=== PATIENT | male | born 1965 | race Caucasian/White ===

== ENCOUNTER 2018-06-27 11:13 | Inpatient (IN) | payer BC, OTHER ==
[~2018-06-27] VITALS: Ht 175.3 cm; Wt 58.8 kg
[2018-06-27] MEDS ORDERED: MORPHINE SULFATE 4 MG/ML SYR/VIAL IV ONE (11:30)
[2018-06-27] MEDS ORDERED: ONDANSETRON HCL 4 MG/2 ML VIAL IV ONE ×2 (11:30→15:15)
[2018-06-27] MEDS ORDERED: SODIUM CHLORIDE 0.9% 1,000 ML IVB ONE (11:30)
[2018-06-27 11:39] LABS: Basophils # (auto) 0.1 uL; Basophils % (auto) 0.8 % (0.0-2.0); Eosinophils # (auto) 0.2 uL; Eosinophils % (auto) 1.3 % (0.0-7.0); Hematocrit 36.9 % (41.0-53.0); Hemoglobin 12.1 g/dL (13.5-17.5); Lymphocytes # (auto) 1.7 uL; Mean Corpuscular Hemoglobin 29.7 pg (28.0-32.0); Mean Corpuscular Hgb Conc. 32.7 g/dL (32.0-36.0); Mean Corpuscular Volume 90.7 fL (80.0-100.0); Monocytes # (auto) 1.1 uL; Monocytes % (auto) 8.2 % (0.0-12.0); Neutrophils # (auto) 10.8 uL; Neutrophils % (auto) 77.7 % (37.0-80.0); Platelet Count (auto) 338 10^3/uL (140-450); Red Blood Cells 4.07 10^6/uL (4.5-5.90); Red Cell Distribution Width 14.5 % (11.8-14.3); White Blood Cell 13.8 10^3/uL (4.4-10.8)
[2018-06-27 12:03] LABS: Albumin 3.1 g/dL (3.4-5.0); BUN/Creatinine Ratio 17.9; Calcium 8.6 mg/dL (8.5-10.1); Potassium 3.9 mmol/L (3.5-5.1)
[2018-06-27 12:05] LABS: Bilirubin, Total 0.3 mg/dL (0.2-1.0); Total Protein 6.9 g/dL (6.4-8.2)
[2018-06-27] MEDS ORDERED: IOHEXOL 300 MG/ML 100ML BOTTLE IJ ONE (12:24)
[2018-06-27] MEDS ORDERED: PIPERACILLIN-TAZOB 3.375GM 100 ML IV ONE (13:00)
[2018-06-27] MEDS ORDERED: metroNIDAZOLE 500MG/100ML 100 ML IV ONE (13:00)
[2018-06-27 13:53] LABS: INR 0.95 (0.9-1.15)
[2018-06-27] MEDS ORDERED: SUCCINYLCHOLINE CHLORIDE 20 MG/ML 10ML VIAL IV ONE (14:30)
[2018-06-27] MEDS ORDERED: LIDOCAINE 1% (LOCAL ANESTH.) PF 5ml SDV ONE (14:31)
[2018-06-27] MEDS ORDERED: MIDAZOLAM HCL 1MG/1ML-2 ML VIAL ONE (14:36)
[2018-06-27] MEDS ORDERED: ETOMIDATE (2MG/ML) 20ML VIAL IV ONE (14:40)
[2018-06-27] MEDS ORDERED: fentaNYL CITRATE 100 MCG/2 ML VL ONE (14:47)
[2018-06-27] MEDS ORDERED: STERILE WATER 10 ML ONE (14:54)
[2018-06-27] MEDS ORDERED: ceFAZolin 1GM VL ONE (14:54)
[2018-06-27] MEDS ORDERED: HYDROmorphone HCL 2 MG/ML VL IV PRN ×3 (15:15→16:00)
[2018-06-27] MEDS ORDERED: NALOXONE HCL 0.4 MG/ML VIAL IV PRN (15:15)
[2018-06-27] MEDS ORDERED: NEOSTIGMINE 1 MG/ML INJ (10mg/10ML VIAL) ONE (15:29)
[2018-06-27] MEDS ORDERED: GLYCOPYRROLATE 0.2 MG/ML 1ML VIAL ONE (15:29)
[2018-06-27] MEDS ORDERED: SODIUM CHLORIDE 0.9% 1,000 ML IV SCH (16:00)
[2018-06-27] MEDS ORDERED: ONDANSETRON HCL 4 MG/2 ML VIAL IV PRN ×2 (16:00→18:30)
[2018-06-27] MEDS: MEPERIDINE HCL (25 MG/ML) 1ML VIAL IV ONE ×2 (16:12→19:57)
[2018-06-27] MEDS ORDERED: MEPERIDINE HCL (25 MG/ML) 1ML VIAL ONE (16:12)
[2018-06-27 18:00] VITALS: BP 141/92
--- NOTE | 2018-06-27 18:00 | NUR ---
Received bedside report from Colin FRIEDMAN. Patient in room 266. Patient on the monitor. Patient on 2L NC. NG tube to left nares on LIS. Matt to gravity. IV right AC 18G saline locked, patent, clean, dry, and intact. SCD's bilateral. Midline incision and 2 EDITA drains suctioned in the left lower quadrant draining serosanguineous fluid, dressings clean, dry, and intact, patient has ABD binder in place. No S/S of SOB/pain or distress noted at this time. Will continue to monitor.
--- NOTE | 2018-06-27 18:17 | NUR ---
Family at bedside.
[2018-06-27] MEDS: D5W/SOD CHL 0.45%/KCL 20MEQ 1,000 ML IV SCH (18:30)
--- NOTE | 2018-06-27 19:20 | NUR ---
OPENING NOTE RECEIVED REPORT AND ASSUMED CARE OF PT FROM DONALD FRIEDMAN
[2018-06-27 19:55] VITALS: BP 127/84
[2018-06-27 20:00] VITALS: BP 127/84
[2018-06-27] MEDS ORDERED: AMINO ACID INFUSION IN D10W 1,000 ML IV ONE (20:45)
[2018-06-27] MEDS ORDERED: TPN PER PHARMACY 0 ML IV SCH (20:45)
[2018-06-27] MEDS: ceFAZolin 1GM/50ML 50 ML IV SCH (22:00)
[2018-06-27] MEDS: FAMOTIDINE (10MG/ML) 2ML VL IV SCH (22:05)
[2018-06-27] MEDS: metroNIDAZOLE 500MG/100ML 100 ML IV SCH (23:03)
[2018-06-28] VITALS: BP 135/78
[2018-06-28] MEDS ORDERED: DEXTROSE (50%) 50ML SYRG IV SCH
[2018-06-28] MEDS: ACCU-CHEK COMFORT CURVE STRIP VI SCH ×5 (00:03→23:37)
[2018-06-28] MEDS: HYDROmorphone HCL 2 MG/ML VL IV PRN ×6 (02:39→23:50)
[2018-06-28 04:00] VITALS: BP 123/72
[2018-06-28 04:47] LABS: Basophils # (auto) 0 uL; Basophils % (auto) 0.1 % (0.0-2.0); Eosinophils # (auto) 0 uL; Hematocrit 36.1 % (41.0-53.0); Hemoglobin 12.3 g/dL (13.5-17.5); Lymphocytes # (auto) 0.4 uL; Lymphocytes % (auto) 4.2 % (10.0-50.0); Mean Corpuscular Hemoglobin 30.5 pg (28.0-32.0); Mean Corpuscular Hgb Conc. 34.1 g/dL (32.0-36.0); Mean Corpuscular Volume 89.3 fL (80.0-100.0); Monocytes # (auto) 0.7 uL; Monocytes % (auto) 7.2 % (0.0-12.0); Neutrophils # (auto) 8.1 uL; Neutrophils % (auto) 88.5 % (37.0-80.0); Platelet Count (auto) 229 10^3/uL (140-450); Red Blood Cells 4.04 10^6/uL (4.5-5.90); Red Cell Distribution Width 14.8 % (11.8-14.3); White Blood Cell 9.2 10^3/uL (4.4-10.8)
[2018-06-28] MEDS: D5W/SOD CHL 0.45%/KCL 20MEQ 1,000 ML IV SCH ×3 (04:54→16:19)
[2018-06-28] MEDS: metroNIDAZOLE 500MG/100ML 100 ML IV SCH ×3 (04:55→21:36)
--- NOTE | 2018-06-28 05:00 | NUR ---
ASSISTED PT WITH CHG BATH. PT TOLERATED WELL. BED IN LOWEST POSITION. CALL LIGHT WITHIN REACH
[2018-06-28 05:15] LABS: Albumin 2.1 g/dL (3.4-5.0); BUN/Creatinine Ratio 23.1; Calcium 7.4 mg/dL (8.5-10.1); Magnesium 1.8 mg/dL (1.6-2.6); Potassium 4.2 mmol/L (3.5-5.1)
[2018-06-28 05:20] LABS: Bilirubin, Total 0.4 mg/dL (0.2-1.0); Pre Albumin 13.1 mg/dL (20.0-40.0); Total Protein 5.3 g/dL (6.4-8.2)
[2018-06-28] MEDS: InsuLIN REG 1unit/0.01ml Soln (100units/ml) SC SCH ×5 (06:00→23:38)
[2018-06-28] MEDS: ceFAZolin 1GM/50ML 50 ML IV SCH (06:08)
--- NOTE | 2018-06-28 07:10 | NUR ---
CLOSING NOTE REPORT GIVEN AND CARE ENDORSED TO DONALD FRIEDMAN
[2018-06-28 08:00] VITALS: BP 135/79
--- NOTE | 2018-06-28 08:00 | NUR ---
Opening Shift Note Assumed care of patient, awake and alert. No S/S of distress/SOB or pain. IV right forearm 20G running fluids at 120ml/hr and left forearm 20G running clinimix at 46ml/hr. IV's patent, clean, dry, and intact. NG tube left nares to LCS. Matt to gravity light sophy urine noted. Oxygen 2L NC. Patient on the monitor. SCD's bilateral. Instructed on POC and to call for assist. Bed locked and in the lowest position, side rails up x2, call light with in reach. Will continue to monitor for change.
--- NOTE | 2018-06-28 08:30 | NUR ---
Dr. Cesar at bedside.
[2018-06-28] MEDS ORDERED: PANTOPRAZOLE 80 MG in SODIUM CHL 0.9% 60 ML IV SCH (10:00)
[2018-06-28] MEDS ORDERED: PANTOPRAZOLE 40 MG/10 ML VIAL INJ IV SCH (10:00)
--- NOTE | 2018-06-28 10:00 | NUR ---
Medication dosages, usages, and side effects explained to patient. Patient verbalized understanding. Will continue to monitor.
[2018-06-28] MEDS ORDERED: ESOMEPRAZOLE IV SCH ×2 (10:45→11:15)
[2018-06-28] MEDS: FAMOTIDINE (10MG/ML) 2ML VL IV SCH (11:09)
[2018-06-28] MEDS ORDERED: SODIUM CHL 0.9% IV SCH (11:15)
--- NOTE | 2018-06-28 11:15 | NUR ---
Dr. Lerma at bedside.
[2018-06-28 12:00] VITALS: BP 140/87
--- NOTE | 2018-06-28 12:14 | NUR ---
PICC line placement Patient/Patient significant other educated on need for PICC line placement. All risks and benefits explained and all questions and concerns addressed prior to procedure. Noted past medical history and allergies with no contraindications. INR and Plt counts within acceptable range. 5 fr PICC line inserted via right basilic vein using [employer] US and Tip Location System. Sterile technique with maximum barrier precautions utilized. Blood return obtained from each of 3 lumens and each flushed easily with NS using proper technique. PICC secured with Stat-lock; biodisc and occlusive dressing applied. Stat portable chest x-ray obtained for PICC tip placement. *Baseline Arm Circumference 27cm. Internal length 41cm. External length 0cm. PICC lot # [id number]. Note: Placed easily x1 attempt.
[2018-06-28] MEDS ORDERED: LIDOCAINE 1% (LOCAL ANESTH.) PF 5ml SDV ID ONE (12:15)
[2018-06-28 13:00] LABS: % Iron Saturation 3.6 % (20-55)
--- NOTE | 2018-06-28 14:15 | NUR ---
Juan PICC line nurse at bedside. Per radiologist recommendation PICC line should be pulled back 3cm. Juan RN at bedside. PICC line pulled back 3cm. PICC line ok to use no repeat x-ray needed.
--- NOTE | 2018-06-28 14:30 | NUR ---
Family at bedside. Will continue to monitor.
--- NOTE | 2018-06-28 14:34 | NUR ---
Nutrition Assessment Notes please see attached link for complete assessment Est. Needs based on IBW (72 kg): 3618-8111 kcal (25-30 kcal/kgBW), 72-93 gms pro (1.0-1.3gms/kgBW). Will continue to monitor pertinent labs and reassess nutrient need prn Addendum: 06/28/18 at [address] Amended: Links added.
[2018-06-28 15:41] LABS: Carcinoembryonic Antigen 2.69 ng/mL (<5.0 OR =); Ferritin 84.1 ng/mL (10-322)
[2018-06-28] MEDS: SODIUM CHL 0.9% IV SCH ×3 (16:18→21:36)
[2018-06-28] MEDS: ESOMEPRAZOLE IV SCH ×3 (16:18→21:36)
[2018-06-28] MEDS: LEVOFLOXACIN 500MG 100 ML IV SCH (16:19)
[2018-06-28 16:30] VITALS: BP 146/85
--- NOTE | 2018-06-28 16:30 | NUR ---
Patient resting at this time. Will continue to monitor.
--- NOTE | 2018-06-28 18:18 | NUR ---
End of shift note: Patient awake and alert. Patient A&Ox4. No S/S of distress/SOB. IV right forearm 20G and left forearm saline locked, patent, clean, dry, and intact. PICC line right upper arm running clinimix/fluids/nexium, patent, clean, dry, and intact. NG tube left nares to LCS. Matt to gravity light sophy urine noted. Patient on the monitor. SCD's bilateral. Bed locked and in the lowest position, side rails up x2, call light with in reach. Report to be given to mine deputy RN. Will continue to monitor for change.
--- NOTE | 2018-06-28 18:30 | NUR ---
300mls out green gastric from NG tube. 100ml out of EDITA drain A. 50ml out of EDITA drain B.
[2018-06-28] MEDS ORDERED: PPN PER PHARMACY IV NR ×8 (20:00)
--- NOTE | 2018-06-28 20:03 | NUR ---
INITIAL CONTACT ASSUMED CARE OF PATIENT PATIENT RECEIVED LAYING ON BED IN SEMI-FOWLERS POSITION AAOX4, VITAL SIGNS WITHIN NORMAL LIMITS, NO S/S OF DISTRESS NOTED, PATIENT DENIES PAIN AT THIS TIME. PATIENT IS ABLE TO MOVE UPPER, LOWER EXTREMITIES, TURNS SELF. O2 SAT 94% ROOM AIR. NOTED GOODSON CATHETER IN PLACE AND DRAINING TO GRAVITY. NOTED TRIPLE LUMEN PICC LINE TO RIGHT UPPER ARM, NO S/S OF PHLEBITIS OR INFILTRATION. NOTED 20 G IV RIGHT FOREARM, 18 G IV LEFT A/C PATENT/ASYMPTOMATIC. NOTED BILATERAL EDITA DRAINS TO ABD LOWER QUADRANT. BED IN LOWEST LOCKED POSITION, SIDE RAILS UP X 2. PATIENT IN FULL VIEW OF NURSES STATION. SAFETY MAINTAINED, WILL CONTINUE TO MONITOR.
[2018-06-28 21:00] VITALS: BP 134/84
[2018-06-28] MEDS: SODIUM CHLOR 0.9% PF (SALINE LOCK) 10ML VIAL/SYR IV SCH (21:36)
[2018-06-29] VITALS (14 sets, daily range): BP systolic 128–168; BP diastolic 78–98
[2018-06-29] MEDS: SODIUM CHL 0.9% IV SCH ×5 (02:30→21:02)
[2018-06-29] MEDS: ESOMEPRAZOLE IV SCH ×5 (02:30→21:02)
[2018-06-29] MEDS: D5W/SOD CHL 0.45%/KCL 20MEQ 1,000 ML IV SCH ×4 (02:40→20:35)
[2018-06-29 05:01] LABS: Albumin 1.9 g/dL (3.4-5.0); Calcium 7.6 mg/dL (8.5-10.1); Magnesium 2.2 mg/dL (1.6-2.6); Potassium 3.9 mmol/L (3.5-5.1)
[2018-06-29 05:05] LABS: BUN/Creatinine Ratio 21.9; Bilirubin, Total 0.3 mg/dL (0.2-1.0); Phosphorus 1.9 mg/dL (2.5-4.90); Total Protein 5.2 g/dL (6.4-8.2)
[2018-06-29] MEDS: ACCU-CHEK COMFORT CURVE STRIP VI SCH ×3 (06:40→18:04)
[2018-06-29] MEDS: InsuLIN REG 1unit/0.01ml Soln (100units/ml) SC SCH ×3 (07:00→18:04)
--- NOTE | 2018-06-29 07:15 | NUR ---
Report received from ELDER Okeefe.
[2018-06-29] MEDS: metroNIDAZOLE 500MG/100ML 100 ML IV SCH ×3 (07:38→20:35)
[2018-06-29] MEDS ORDERED: LABETALOL HCL 5 MG/ML ML 20ML VIAL IV PRN (09:30)
[2018-06-29] MEDS ORDERED: SODIUM PHOSP 20MEQ(15MMOL) IN NS 100 ML IV ONE (10:00)
[2018-06-29] MEDS: LEVOFLOXACIN 500MG 100 ML IV SCH (10:08)
[2018-06-29] MEDS: SODIUM CHLOR 0.9% PF (SALINE LOCK) 10ML VIAL/SYR IV SCH ×2 (10:08→20:35)
--- NOTE | 2018-06-29 10:54 | NUR ---
Dr. Watson at bedside: New orders - Pulmonary test at bedside ordered, solumedrol, med neb treatments. Addendum: 06/29/18 at 1100 by Fay Chen RN wrong patient-
--- NOTE | 2018-06-29 10:56 | NUR ---
PATIENT SEEN BY DR. TURNER - KEEP PATIENT IN BED FOR NOW, CONTINUE STRICT NPO AND NGT. WITH REASSESS ABDOMEN WITH XRAY TO VERIFY IF PATIENT ABLE TO EAT.
--- NOTE | 2018-06-29 12:38 | NUR ---
PATIENT SEEN BY DR. LERMA- NEW ORDERS FOR THE MORNING.
[2018-06-29] MEDS: HYDROmorphone HCL 2 MG/ML VL IV PRN ×4 (12:50→22:18)
--- NOTE | 2018-06-29 18:00 | NUR ---
I/O- EDITA DRAIN A = 10 EDITA DRAIN B= 40 NGT = 200 GOODSON = 800
--- NOTE | 2018-06-29 19:42 | NUR ---
SBAR REPORT GIVEN TO KARINE.
--- NOTE | 2018-06-29 19:45 | NUR ---
SHIFT OPENING NOTE RECEIVED PATIENT AWAKE, ALERT AND ORIENTED X4. NO SOB OR DISTRESS NOTED. REPORTS 2/10 BACK AND ABDOMINAL PAIN. STATUS POST ABDOMINAL SURGERY. ABDOMINAL BINDER ON, ENCOURAGED TO USE I.S AND DEEP BREATHING. SCDS ON. PATIENT IS STRICTLY NPO. NG TO L NARE TO LCS. 2 JPS NOTED ON LEFT ABDOMEN WITH SEROUS OUTPUT. R[place] PICC LINE INFUSING TPN, FLUIDS AND NEXIUM. INSTRUCTED ON POC AND TO CALL FOR ASSIST NEEDED. BED IS IN THE LOWEST POSITION WITH SIDE RAILS UP X2, CALL LIGHT IS WITHIN REACH.
[2018-06-29] MEDS ORDERED: TPN PER PHARMACY IV NR ×9 (20:00)
[2018-06-30] VITALS: BP 125/71
--- NOTE | 2018-06-30 01:50 | NUR ---
ROUNDS PATIENT QUIETLY LAYING N BED WATCHING TV. NO DISTRESS OR SOB NOTED. WILL CONTINUE TO CLOSELY MONITOR.
[2018-06-30] MEDS: ACCU-CHEK COMFORT CURVE STRIP VI SCH ×4 (01:57→18:30)
[2018-06-30] MEDS: ESOMEPRAZOLE IV SCH ×5 (01:57→23:30)
[2018-06-30] MEDS: SODIUM CHL 0.9% IV SCH ×5 (01:57→23:30)
[2018-06-30] MEDS: InsuLIN REG 1unit/0.01ml Soln (100units/ml) SC SCH ×4 (01:58→18:30)
[2018-06-30 04:00] VITALS: BP 135/76
[2018-06-30 05:00] LABS: Basophils # (auto) 0 uL; Basophils % (auto) 0.3 % (0.0-2.0); Eosinophils # (auto) 0 uL; Eosinophils % (auto) 0.4 % (0.0-7.0); Hematocrit 32.5 % (41.0-53.0); Lymphocytes # (auto) 0.4 uL; Mean Corpuscular Hemoglobin 30.2 pg (28.0-32.0); Mean Corpuscular Hgb Conc. 33.9 g/dL (32.0-36.0); Mean Corpuscular Volume 89.1 fL (80.0-100.0); Monocytes # (auto) 0.5 uL; Monocytes % (auto) 5.6 % (0.0-12.0); Neutrophils # (auto) 8.1 uL; Neutrophils % (auto) 89.7 % (37.0-80.0); Platelet Count (auto) 184 10^3/uL (140-450); Red Blood Cells 3.65 10^6/uL (4.5-5.90); Red Cell Distribution Width 14.5 % (11.8-14.3)
[2018-06-30 05:24] LABS: Albumin 1.8 g/dL (3.4-5.0); BUN/Creatinine Ratio 17.9; Calcium 7.4 mg/dL (8.5-10.1); Magnesium 2.1 mg/dL (1.6-2.6); Phosphorus 2.7 mg/dL (2.5-4.90); Potassium 3.6 mmol/L (3.5-5.1)
[2018-06-30 05:27] LABS: Bilirubin, Total 0.2 mg/dL (0.2-1.0); Total Protein 5.2 g/dL (6.4-8.2)
--- NOTE | 2018-06-30 06:00 | NUR ---
MORNING HYGEINE CARE FULL BED BATH PERFORMED WITH CHG WIPES. ORAL CARE DONE. GOWN CHANGED. PARTIAL LINEN CHANGED. PATIENT TOLERATED IT WELL.
[2018-06-30] MEDS: metroNIDAZOLE 500MG/100ML 100 ML IV SCH ×3 (06:36→21:01)
--- NOTE | 2018-06-30 07:25 | NUR ---
END OF SHIFT REPORT GIVEN AND CARE ENDORSED TO SARAI FRIEDMAN. PATIENT IS QUIETLY LAYING IN BED. NO DISTRESS NOTED.
--- NOTE | 2018-06-30 07:30 | NUR ---
REPORT: REPORT RECEIVED FROM CRIPPLE WORKER RN TO RESUME CARE OF PT.
--- NOTE | 2018-06-30 08:00 | NUR ---
OPEN: ASSESSMENT COMPLETE. SEE NURSING FLOW SHEET FOR UPDATED DETAILS. PT IS ALERT AND ORIENTED X4, OBEYS COMMANDS, VERBALIZING NEEDS AND ABLE TO USE CALL LIGHT ON OWN. ON ROOM AIR. NGT TO LEFT NARE TO LCS DRAINING MINIMAL AMOUNT OF GREEN DRAINAGE. GOODSON CATHETER IN PLACE DRAINING URINE TO GRAVITY. SCD'S ON BILATERAL LOWER EXTREMITIES. MID ABDOMINAL INCISION THAT IS COVERED WITH DRESSING WITH SCANT AMOUNT OF OLD DRAINAGE NOTED. EDITA DRAIN X2 TO LEFT ANTERIOR ABDOMEN TO BULB SUCTION. ABDOMINAL BINDER IN PLACE. SHARED POC WITH PT AND ABLE TO VERBALIZE UNDERSTANDING FOR SHIFT THUS FAR. CONTINUE CARE.
--- NOTE | 2018-06-30 10:30 | NUR ---
VISITORS: VISITORS IN AT BEDSIDE.
--- NOTE | 2018-06-30 10:30 | NUR ---
MD CONTACT: CONTACTED DR. TURNER TO UPDATE ON PT STATUS AND FOR POTENTIAL NEW ORDERS FOR PAIN MANAGEMENT.
[2018-06-30] MEDS: SODIUM CHLOR 0.9% PF (SALINE LOCK) 10ML VIAL/SYR IV SCH ×2 (10:48→21:02)
[2018-06-30] MEDS: LEVOFLOXACIN 500MG 100 ML IV SCH (10:48)
[2018-06-30] MEDS: D5W/SOD CHL 0.45%/KCL 20MEQ 1,000 ML IV SCH ×2 (10:48→21:02)
--- NOTE | 2018-06-30 11:08 | NUR ---
PAGE: DR. LERMA PAGED REGARDING PAIN MANAGEMENT. PATIENT STATING THAT HE HAS PAIN IN HIS LOWER BACK BUT DOES NOT WANT DILAUDID.
--- NOTE | 2018-06-30 11:15 | NUR ---
MD VISIT/ORDERS: DR. LERMA IN AT BEDSIDE. UPDATED THAT PATIENT STILL HAVING PAIN BUT DOES NOT WANT DILAUDID AT TIME AND REQUESTING SOMETHING DIFFERENT. PATIENT STATING THAT HE "GETS TO [place]." CLARIFIED WITH DR. TURNER WELL AND MD WOULD LIKE PT TO BE ON BEDREST FOR ANOTHER 24HOURS. PLAN TO CARRY OUT ORDERS.
[2018-06-30 12:00] VITALS: BP 154/85
[2018-06-30] MEDS: SODIUM FERR GLUC 62.5MG/5ML 125 MG in SODIUM CHL 0.9% 100 ML IV SCH (12:15)
[2018-06-30] MEDS: KETOROLAC TROMETH 30 MG/ML 1ML VIAL IV PRN ×2 (13:00→19:29)
--- NOTE | 2018-06-30 13:25 | NUR ---
UPDATE: PT NOW RESTING WITH VITAL SIGNS IN STABLE RANGE AND NO COMPLAINTS OF PAIN. WILL CONTINUE TO MONITOR.
--- NOTE | 2018-06-30 13:58 | NUR ---
PHYSICAL THERAPY: PHYSICAL THERAPY IN AT BEDSIDE. UPDATED THAT PATIENT IS TO BE ON STRICT BEDREST FOR AT LEAST 24HRS MORE AND TO RE-SCHEDULE PHYSICAL THERAPY FOR TOMORROW.
--- NOTE | 2018-06-30 14:19 | NUR ---
Nutrition Follow-up Notes Wt.: 61.2 kg today. Pt's asleep, no immediate family member at bedside during rounds this morning. Pt's s/p explor lap (06/27/18), no signs of distress noted earlier, remains NPO with TPN @ 45 ml/hr providing 1230 kcal, 50 gms pro, 1030 NPCs and 16% Fat. Pt with inadequate PN support d/t low initiation rate delivery of concentrated formula aeb current PN infusion meets 57% to 68% of est caloric needs and 54% to 69% of est protein needs. Noted pt's to receive tonight another PN @ 54 ml/hr providing 1460 kcal, 60 gms pro, 1220 NPCs and 14% Fat and for active Brian/Oncology consult. Est. Needs based on IBW (72 kg): 3617-4150 kcal (25-30 kcal/kgBW), 72-93 gms pro (1.0-1.3gms/kgBW). Will continue to monitor pertinent labs and reassess nutrient need prn Labs: Gluc 117 H, Ca 7.4 L, ALT 15 L, Tpro 5.2 L, Alb 1.8 L ; Prealb 7.3 L, Tri 38 wnl Skin: Dany scale 14, mod risk, pt's medial abdomen incision dry and intact per shaft tender. GI: Pt's no bowel activity since 06/27/18, on NGT to LCS, had 50 ml gastric drainage output this morning per shaft tender. PES: Increased nutrient needs r/t current/chronic medical/nutritional status aeb 84% IBW. BMI, decreased muscle mass, severe hypoalbuminemia, NPO with PN support Altered nutrition related lab values r/t current/chronic medical condition aeb severe hypoalb, hyperglcyemia, hypocalcemia Will continue to monitor NPO status, PN tolerance, skin status, pertinent labs and weight trend. F/u in 2 to 3 days. Rec.: 1.) If still NPO with PN support, consider gradual increase on calories and protein to meet at least 75% of est nutrient needs. 2.) Advance gradually to oral diet when medically appropriate. 3.) Refer pt to RD for further nutrition education and weight monitoring upon discharge. 4.) Continue current plan of care.
--- NOTE | 2018-06-30 15:02 | NUR ---
VISITORS: VISITORS IN AT BEDSIDE.
--- NOTE | 2018-06-30 15:12 | NUR ---
MD CONTACT: CONTACTED DR. TURNER TO UPDATE ON PT STATUS. AWARE OF ALL CURRENT UPDATES, WOULD LIKE TO KEEP PT IN [facility] AND OK TO CHANGE DRESSING USING STERILE TECHNIQUE.
[2018-06-30 15:58] VITALS: BP 155/88
--- NOTE | 2018-06-30 17:00 | NUR ---
UPDATE: PATIENT HAS BEEN RESTING WITHOUT ANY NEEDS AT TIME. CALL LIGHT IN REACH FOR USE.
--- NOTE | 2018-06-30 18:30 | NUR ---
DRESSING CHANGE: REMOVED OLD DRESSING TO MID ABDOMINAL INCISION AND EDITA DRAIN X2. CLEANSED SURGICAL SITE AND EDITA DRAIN SITE USING STERILE TECHNIQUE AND APPLIED NEW DRESSING TO MIDABDOMEN AND EDITA DRAIN X2. ANTIONETTE INTACT, NO OOZING, NO REDNESS AND APPEARS TO BE HEALING WELL. PT OVERALL TOLERATED WELL.
--- NOTE | 2018-06-30 19:27 | NUR ---
REPORT: REPORT GIVEN TO GOLD LEAF PRINTER RN TO RESUME CARE OF PT.
--- NOTE | 2018-06-30 19:30 | NUR ---
SHIFT OPENING NOTE RECEIVED PATIENT AWAKE, ALERT AND ORIENTED X4. NO SOB OR DISTRESS NOTED. REPORTS 2/10 BACK PAIN. STATUS POST ABDOMINAL SURGERY. SCDS ON. PATIENT IS STRICTLY NPO. NG TO L NARE TO LCS. 2 JPS NOTED ON LEFT ABDOMEN WITH SEROUS OUTPUT. R[place]D PICC LINE INFUSING TPN, FLUIDS AND NEXIUM. INSTRUCTED ON POC AND TO CALL FOR ASSIST NEEDED. BED IS IN THE LOWEST POSITION WITH SIDE RAILS UP X2, CALL LIGHT IS WITHIN REACH.
[2018-06-30 20:00] VITALS: BP 149/90
[2018-06-30] MEDS ORDERED: TPN PER PHARMACY IV NR ×9 (20:00)
[2018-07-01] VITALS: BP 164/87
[2018-07-01] MEDS: ACCU-CHEK COMFORT CURVE STRIP VI SCH ×4 (01:14→17:35)
--- NOTE | 2018-07-01 01:20 | NUR ---
ROUNDS PATIENT QUIETLY LAYING IN BED SLEEPING. NO SOB, DISTRESS OR PAIN NOTED. WILL CONTINUE TO CLOSELY MONITOR.
[2018-07-01 04:00] VITALS: BP 165/87
[2018-07-01] MEDS: metroNIDAZOLE 500MG/100ML 100 ML IV SCH ×2 (04:18→14:51)
[2018-07-01] MEDS: KETOROLAC TROMETH 30 MG/ML 1ML VIAL IV PRN ×3 (04:19→18:53)
[2018-07-01] MEDS: SODIUM CHL 0.9% IV SCH ×4 (05:15→22:21)
[2018-07-01] MEDS: ESOMEPRAZOLE IV SCH ×4 (05:15→22:21)
[2018-07-01 05:55] LABS: Albumin 1.9 g/dL (3.4-5.0); Calcium 7.5 mg/dL (8.5-10.1); Magnesium 2.2 mg/dL (1.6-2.6); Potassium 3.1 mmol/L (3.5-5.1)
[2018-07-01 05:59] LABS: Bilirubin, Total 0.3 mg/dL (0.2-1.0); Phosphorus 3.2 mg/dL (2.5-4.90); Total Protein 5.3 g/dL (6.4-8.2)
[2018-07-01] MEDS: InsuLIN REG 1unit/0.01ml Soln (100units/ml) SC SCH ×4 (06:00→18:00)
--- NOTE | 2018-07-01 07:30 | NUR ---
END OF SHIFT PATIENT IS LAYING IN BED WATCHING TV. NO DISTRESS NOTED. REPORT GIVEN AND CARE ENDORSED TO DONALD FRIEDMAN.
[2018-07-01 08:00] VITALS: BP 139/84
--- NOTE | 2018-07-01 08:00 | NUR ---
Opening Shift Note Assumed care of patient, awake and alert. No S/S of distress/SOB or pain. Patient A&Ox4. Right upper arm PICC running fluids at 75ml/hr, Nexium 10ml/hr, and TPN at 54ml/hr. PICC line patent, clean, dry, and intact. NG tube left nares to LCS. Matt to gravity light sophy urine noted. Patient on the monitor. Instructed on POC and to call for assist. Bed locked and in the lowest position, side rails up x2, call light with in reach. Will continue to monitor for change.
[2018-07-01] MEDS: D5W/SOD CHL 0.45%/KCL 20MEQ 1,000 ML IV SCH ×2 (09:12→22:10)
--- NOTE | 2018-07-01 10:30 | NUR ---
Medication dosages, usages, and side effects explained to patient. Patient verbalized understanding. Will continue to monitor.
[2018-07-01] MEDS: LEVOFLOXACIN 500MG 100 ML IV SCH (10:47)
[2018-07-01] MEDS: SODIUM CHLOR 0.9% PF (SALINE LOCK) 10ML VIAL/SYR IV SCH ×2 (10:48→22:35)
--- NOTE | 2018-07-01 11:00 | NUR ---
Dr. La at bedside.
[2018-07-01 11:51] VITALS: BP 167/97
[2018-07-01] MEDS: POTASSIUM CHL 20MEQ/100ML 100 ML IV SCH ×2 (12:41→14:00)
--- NOTE | 2018-07-01 14:45 | NUR ---
Report given to Shannon FRIEDMAN. Patient going to room 275B. Patient on tele box 26. All patient belongings taken with the patient. No S/S of pain/SOB or distress noted.
--- NOTE | 2018-07-01 14:50 | NUR ---
Verbal report received from ELDER Newman, DI[facility] Nurse. Assumed care of patient. Patient is awake, alert and oriented X4. No signs or symptoms of pain, shortness of breath or discomfort. Patient is now on Tele# 26, sinus rhythm @ 92 bpm. Right nare NGT to LCS draining light green drainage, placement verified via air embolus and CXR. Right upper arm triple lumen PICC with all ports flushed and patent. Midline abdominal incision with cristina intact, dressing clean, dry and intact, abdominal binder in place. EDITA x 2, draining clear, yellow drainage. Urethral Matt catheter draining straw colored urine to gravity. Bilateral SCD's in place. Bed locked, in lowest position, call light within reach, will continue to monitor Q 1 hour and PRN.
[2018-07-01 17:06] VITALS: BP 168/95
[2018-07-01] MEDS ORDERED: POTASSIUM CHL 20MEQ/100ML 100 ML IV ONE (19:00)
--- NOTE | 2018-07-01 19:40 | NUR ---
Opening Shift Note Assumed care of patient, awake and alert oriented x4. No S/S of distress/SOB noted. Bed is in lowest locked position with bed rails up x2 and call light is within reach of the patient. NG tube connected to low intermittent suction on right nare. Instructed on POC and to call for assist PRN. Addendum: 07/03/18 at 0229 by Karen Bonilla RN RN Patient on Low continuous suction.
--- NOTE | 2018-07-01 19:40 | NUR ---
Care endorsed to ELDER Rawls, night nurse.
[2018-07-01] MEDS ORDERED: TPN PER PHARMACY IV NR ×10 (20:00)
[2018-07-01] MEDS: SODIUM FERR GLUC 62.5MG/5ML 125 MG in SODIUM CHL 0.9% 100 ML IV SCH (20:02)
[2018-07-01 22:00] VITALS: BP 150/96
--- NOTE | 2018-07-02 | NUR ---
Flagyl and Nexium given late, to call pharmacy: Flagyl and Nexium given late due to Ferrlecit and potassium medication to be given leaving no iv access. To call pharmacy and reschedule medications.
[2018-07-02] MEDS: ACCU-CHEK COMFORT CURVE STRIP VI SCH ×4 (00:17→17:05)
[2018-07-02] MEDS: metroNIDAZOLE 500MG/100ML 100 ML IV SCH ×4 (00:17→17:05)
[2018-07-02] MEDS: KETOROLAC TROMETH 30 MG/ML 1ML VIAL IV PRN ×2 (01:08→19:57)
[2018-07-02] MEDS ORDERED: SODIUM CHL 0.9% IV SCH ×2 (03:30→07:00)
[2018-07-02] MEDS: SODIUM CHL 0.9% IV SCH ×2 (03:30→05:30)
[2018-07-02] MEDS ORDERED: ESOMEPRAZOLE IV SCH ×2 (03:30→07:00)
[2018-07-02] MEDS: ESOMEPRAZOLE IV SCH ×2 (03:30→05:30)
[2018-07-02 05:00] VITALS: BP 149/78
[2018-07-02 05:40] LABS: Basophils # (auto) 0 uL; Basophils % (auto) 0.3 % (0.0-2.0); Eosinophils # (auto) 0.2 uL; Eosinophils % (auto) 3.2 % (0.0-7.0); Hematocrit 29.7 % (41.0-53.0); Hemoglobin 9.9 g/dL (13.5-17.5); Lymphocytes # (auto) 0.5 uL; Lymphocytes % (auto) 7.3 % (10.0-50.0); Mean Corpuscular Hemoglobin 29.6 pg (28.0-32.0); Mean Corpuscular Hgb Conc. 33.4 g/dL (32.0-36.0); Mean Corpuscular Volume 88.6 fL (80.0-100.0); Monocytes # (auto) 0.8 uL; Monocytes % (auto) 10.9 % (0.0-12.0); Neutrophils # (auto) 5.6 uL; Neutrophils % (auto) 78.3 % (37.0-80.0); Platelet Count (auto) 236 10^3/uL (140-450); Red Blood Cells 3.35 10^6/uL (4.5-5.90); Red Cell Distribution Width 14.9 % (11.8-14.3); White Blood Cell 7.1 10^3/uL (4.4-10.8)
[2018-07-02 05:46] LABS: Calcium 7.4 mg/dL (8.5-10.1); Magnesium 2.2 mg/dL (1.6-2.6); Potassium 3.3 mmol/L (3.5-5.1)
[2018-07-02 05:52] LABS: BUN/Creatinine Ratio 17.6; Bilirubin, Total 0.2 mg/dL (0.2-1.0); Phosphorus 2.9 mg/dL (2.5-4.90); Pre Albumin 9.8 mg/dL (20.0-40.0); Total Protein 5.3 g/dL (6.4-8.2)
[2018-07-02] MEDS: InsuLIN REG 1unit/0.01ml Soln (100units/ml) SC SCH ×4 (06:00→17:05)
--- NOTE | 2018-07-02 06:45 | NUR ---
PHARMACY CONTACTED TO RESCHEDULE MEDICATIONS: PHARMACY SUGGESTS TO HAVE NEXIUM 40MG IV SLOWLY PUSH DAILY INSTEAD OF 10ML/HOUR. IF ANY QUESTIONS DOCTOR TO CALL PHARMACIST FOR CLARIFICATION. FLAGYL WAS RESCHEDULED.
--- NOTE | 2018-07-02 07:32 | NUR ---
DRAINAGE: 60ml of bile drained from NG tube on low continuous suction. EDITA drain A: 15ml EDITA drain B: 15ml
--- NOTE | 2018-07-02 08:00 | NUR ---
Opening Shift Note Assumed care of patient. Patient is awake, alert and oriented X4. No signs or symptoms of pain, shortness of breath or discomfort. Patient is now on Tele# 26, sinus rhythm @ 96 bpm. Right nare NGT to LCS draining light green drainage, placement verified via CXR. Right upper arm triple lumen PICC with all ports flushed and patent. Midline abdominal incision with cristina intact, dressing clean, dry and intact, abdominal binder in place. EDITA x 2, draining clear, yellow drainage. Urethral Matt catheter draining straw colored urine to gravity. Bilateral SCD's in place. Bed locked, in lowest position, call light within reach, will continue to monitor Q 1 hour and PRN.
[2018-07-02 09:06] VITALS: BP 131/78
[2018-07-02] MEDS ORDERED: metroNIDAZOLE 500MG/100ML 100 ML IV SCH (12:12)
[2018-07-02] MEDS: SODIUM CHLOR 0.9% PF (SALINE LOCK) 10ML VIAL/SYR IV SCH (12:19)
[2018-07-02] MEDS: ESOMEPRAZOLE 40 MG/5ml VIAL INJ IV SCH (12:19)
[2018-07-02] MEDS: LEVOFLOXACIN 500MG 100 ML IV SCH (12:19)
[2018-07-02 13:01] VITALS: BP 144/93
[2018-07-02] MEDS: POTASSIUM CHL 20MEQ/100ML 100 ML IV SCH ×2 (14:09→18:07)
[2018-07-02] MEDS: SODIUM FERR GLUC 62.5MG/5ML 125 MG in SODIUM CHL 0.9% 100 ML IV SCH (14:10)
--- NOTE | 2018-07-02 14:40 | NUR ---
Nutrition Follow-up Notes Wt.: 62.2 kg today. Pt's with PT at bedside when rounded this morning. Pt's no signs of distress noted earlier, remains NPO with TPN @ 65 ml/hr providing 1770 kcal, 70 gms pro, 1490 NPCs and 17% Fat. Pt with adequate PN support d/t high initiation rate delivery of concentrated formula aeb current PN infusion meets 82% to 98% of est caloric needs and 75% to 97% of est protein needs. Noted pt's to receive tonight another TPN @ 73 ml/hr providing 1980 kcal, 80 gms pro, 1660 NPCs and 14% Fat . Est. Needs based on IBW (72 kg): 1713-3165 kcal (25-30 kcal/kgBW), 72-93 gms pro (1.0-1.3gms/kgBW). Will continue to monitor pertinent labs and reassess nutrient need prn Labs: Gluc 114 H, Cl 109 H, K 3.3 L, Ca 7.4 L, Cr 0.51 L, AST 13 L, ALT 42 L, Tpro 5.3 L, Alb 2.0 L ; Prealb 9.8 L, Trig 85 wnl Skin: Dany scale 20, low risk, pt's medial abdomen incision dry and intact per production tester. GI: Pt had 1 BM this morning per production tester. PES: Increased nutrient needs r/t current/chronic medical/nutritional status aeb 84% IBW. BMI, decreased muscle mass, severe hypoalbuminemia, NPO with PN support Altered nutrition related lab values r/t current/chronic medical condition aeb severe hypoalb, hyperglycemia, hypocalcemia Will continue to monitor NPO status, PN tolerance, skin status, pertinent labs and weight trend. F/u in 2 to 3 days. Rec.: 1.) If still NPO, continue PN support that meets at least 75% of est nutrient needs. 2.) Advance gradually to oral diet when medically appropriate. 3.) Refer pt to RD for further nutrition education and weight monitoring upon discharge. 4.) Continue current plan of care.
[2018-07-02 16:57] VITALS: BP 159/92
--- NOTE | 2018-07-02 17:06 | NUR ---
ROUNDS Dr Miranda at bedside for rounds, new orders received and followed through. Patient updated on plan of care, verbalized understanding.
[2018-07-02] MEDS: D5W/SOD CHL 0.45%/KCL 20MEQ 1,000 ML IV SCH (18:08)
[2018-07-02] MEDS ORDERED: POTASSIUM CHL 20MEQ/100ML 100 ML IV ONE (18:11)
--- NOTE | 2018-07-02 19:14 | NUR ---
Care endorsed to ELDER Rawls, night nurse.
--- NOTE | 2018-07-02 19:35 | NUR ---
Opening Shift Note Assumed care of patient, awake and alert oriented x4. No S/S of distress/SOB noted. Dressings to abdomen are dry and intact and EDITA drains draining. NG tube to right nare at low continuous suction. Instructed on POC and to call for assist PRN, will continue to monitor for changes Q1hr and PRN.
[2018-07-02] MEDS ORDERED: TPN PER PHARMACY IV NR ×9 (20:00)
[2018-07-02 22:00] VITALS: BP 155/96
[2018-07-03] MEDS: SODIUM CHLOR 0.9% PF (SALINE LOCK) 10ML VIAL/SYR IV SCH ×3 (00:25→21:38)
[2018-07-03] MEDS: ACCU-CHEK COMFORT CURVE STRIP VI SCH ×4 (00:26→18:13)
[2018-07-03] MEDS: D5W/SOD CHL 0.45%/KCL 20MEQ 1,000 ML IV SCH ×2 (00:27→15:15)
[2018-07-03] MEDS: metroNIDAZOLE 500MG/100ML 100 ML IV SCH ×3 (00:34→17:52)
[2018-07-03] MEDS: KETOROLAC TROMETH 30 MG/ML 1ML VIAL IV PRN ×3 (02:20→20:13)
[2018-07-03 05:00] VITALS: BP 158/96
[2018-07-03] MEDS: InsuLIN REG 1unit/0.01ml Soln (100units/ml) SC SCH ×4 (05:33→18:00)
[2018-07-03 06:00] LABS: Basophils # (auto) 0 uL; Basophils % (auto) 0.5 % (0.0-2.0); Eosinophils # (auto) 0.3 uL; Eosinophils % (auto) 4.1 % (0.0-7.0); Hemoglobin 10.6 g/dL (13.5-17.5); Lymphocytes # (auto) 0.7 uL; Lymphocytes % (auto) 9.7 % (10.0-50.0); Mean Corpuscular Hemoglobin 30.4 pg (28.0-32.0); Mean Corpuscular Hgb Conc. 34.3 g/dL (32.0-36.0); Mean Corpuscular Volume 88.6 fL (80.0-100.0); Monocytes # (auto) 0.7 uL; Monocytes % (auto) 10.5 % (0.0-12.0); Neutrophils # (auto) 5.1 uL; Neutrophils % (auto) 75.2 % (37.0-80.0); Platelet Count (auto) 286 10^3/uL (140-450); Red Cell Distribution Width 14.8 % (11.8-14.3); White Blood Cell 6.8 10^3/uL (4.4-10.8)
[2018-07-03 06:33] LABS: Potassium 3.9 mmol/L (3.5-5.1)
--- NOTE | 2018-07-03 06:39 | NUR ---
Drainage: EDITA A 10ml EDITA B 15ml.
[2018-07-03 06:41] LABS: Albumin 2.1 g/dL (3.4-5.0); BUN/Creatinine Ratio 18.8; Bilirubin, Total 0.3 mg/dL (0.2-1.0); Calcium 7.8 mg/dL (8.5-10.1); Magnesium 2.1 mg/dL (1.6-2.6); Phosphorus 3.4 mg/dL (2.5-4.90); Pre Albumin 11.6 mg/dL (20.0-40.0); Total Protein 5.7 g/dL (6.4-8.2)
--- NOTE | 2018-07-03 08:00 | NUR ---
OPENING SHIFT NOTE. PATIENT LAYING IN BED SEMI FOWLERS. A&OX4. NO S/S OF RESPIRATORY DISTRESS OR PAIN. PATIENT NG TUBE TO RIGHT NARE CONNECTED TO LOW CONTINUOS SUCTION. GOODSON CATHETER PATENT AND DRAINING. ATTACHED TO BED BELOW WAIST LEVEL. EDITA DRAINS X2 PATENT WITH BULB COMPRESSED. DRESSINGS TO MIDLINE ABD DRY AND INTACT. PATIENT UPDATED ON POC. ALL QUESTIONS ANSWERED. BED IN LOWEST LOCKED POSITION. SIDE RAILS UP X2. WITH CALL LIGHT WITHIN REACH. WILL CONTINUE TO MONITOR PRN AND Q1HR. Signed: 07/03/18 at 1200 by SN SYL <Co-Signature Required> Co-Signed: 07/03/18 at 1200 by Chica Kent RN
[2018-07-03 08:49] VITALS: BP 125/78
[2018-07-03] MEDS: ESOMEPRAZOLE 40 MG/5ml VIAL INJ IV SCH (09:07)
[2018-07-03] MEDS: LEVOFLOXACIN 500MG 100 ML IV SCH (09:08)
[2018-07-03] MEDS: SODIUM FERR GLUC 62.5MG/5ML 125 MG in SODIUM CHL 0.9% 100 ML IV SCH (12:35)
[2018-07-03 13:12] VITALS: BP 139/89
[2018-07-03 16:59] VITALS: BP 157/90
--- NOTE | 2018-07-03 17:01 | NUR ---
DRESSING: DRESSING DRY AND INTACT. NO DRAINAGE ON BOTH MIDLINE ADB DRESSING OR EDITA DRAIN SITES X2. DRESSING CHANGED USING STERILE TECHNIQUE. CLEANED SITE WITH SALINE AND APPLIED ABD PAD TO MIDLINE SITE. DRESSING TO EDITA DRAINS CLEANED WITH SALINE AND STERILE 4X4 APPLIED AND SECURED WITH MEDIPORE TAPE. PATIENT TOLERATED WELL. Signed: 07/03/18 at 1707 by SN SYL <Co-Signature Required> Co-Signed: 07/03/18 at 1707 by Chica Kent RN
--- NOTE | 2018-07-03 18:10 | NUR ---
DRAINAGE: EDITA DRAIN A: 0ML EDITA DRAIN B: 10ML Signed: 07/03/18 at 1811 by SN SYL <Co-Signature Required> Co-Signed: 07/03/18 at 1811 by Chica Kent RN
--- NOTE | 2018-07-03 18:20 | NUR ---
NG TUBE OUTPUT: 50MLS OF BILE-LIKE FLUID WITH BROWN SEDIMENTATION. Signed: 07/03/18 at 1838 by SN SYL <Co-Signature Required> Co-Signed: 07/03/18 at 1838 by Chica Kent RN
--- NOTE | 2018-07-03 18:32 | NUR ---
END OF SHIFT PATIENT RESTING IN BED. NO S/S OF DISTRESS. INSTRUCTED PATIENT TO CALL PRN. BED IN LOWEST LOCKED POSITION, CALL LIGHT WITHIN REACH. ENDORSED CARE TO ELDER REAL.
--- NOTE | 2018-07-03 19:35 | NUR ---
Opening Shift Note Assumed care of patient, awake and alert oriented x4. No S/S of distress/SOB noted. Bed is in lowest locked position with bed rails up x2 and call light is within reach of the patient. NG tube secured and connected to low continuous suction. Dressings are dry and intact. Instructed on POC and to call for assist PRN.
[2018-07-03] MEDS ORDERED: TPN PER PHARMACY IV NR ×9 (20:00)
[2018-07-03 22:00] VITALS: BP 139/80
[2018-07-04] MEDS: metroNIDAZOLE 500MG/100ML 100 ML IV SCH ×3 (00:36→17:58)
[2018-07-04] MEDS: ACCU-CHEK COMFORT CURVE STRIP VI SCH ×5 (00:39→23:51)
[2018-07-04] MEDS: D5W/SOD CHL 0.45%/KCL 20MEQ 1,000 ML IV SCH ×2 (02:14→20:46)
[2018-07-04 05:48] VITALS: BP 150/90
[2018-07-04] MEDS: InsuLIN REG 1unit/0.01ml Soln (100units/ml) SC SCH ×5 (06:00→23:51)
--- NOTE | 2018-07-04 06:37 | NUR ---
EDITA Drainage: EDITA A 0 mls EDITA B 10 mls
--- NOTE | 2018-07-04 06:50 | NUR ---
Closing note: Patient is resting in bed breaths even and unlabored. NG tube connected to low continuous suction. No s/s of distress SOB noted. Bed is in lowest locked position with bed rails up x2 and call light is within reach of the patient. Dressings are dry and intact and abdominal binder secured over abdomen. EDITA drains besides the patient. Will endorse care to day shift nurse.
--- NOTE | 2018-07-04 08:00 | NUR ---
OPENING SHIFT NOTE. PATIENT RESTING IN BED SEMI NUR. A&OX4. COMPLAINTS OF MILD PAIN. WILL MEDICATE PER EMAR. NG TUBE TO R NARE CONNECTED TO LOW CONTINUOS SUCTION. EDITA DRAINS X2 PATENT CURRENTLY COMPRESSED. GOODSON CATHETER PATENT AND DRAINING. BAG HANGING BELOW THE WAIST. ABD DRESSING DRY AND INTACT. ABD BINDER IN PLACE. PATIENT UPDATED ON POC. ALL QUESTIONS ANSWERED. BED IN LOWEST LOCKED POSITION SIDE RAILS X2 UP WITH CALL LIGHT WITHIN REACH. WILL CONTINUE TO MONITOR Q1HR AND PRN. Signed: 07/04/18 at 1126 by SN SYL <Co-Signature Required> Co-Signed: 07/04/18 at 1126 by Chica Kent RN
[2018-07-04] MEDS ORDERED: KETOROLAC TROMETH 60MG/2ML VIAL IV PRN (08:45)
[2018-07-04 09:00] VITALS: BP 137/79
[2018-07-04] MEDS: ESOMEPRAZOLE 40 MG/5ml VIAL INJ IV SCH ×2 (09:24→23:04)
[2018-07-04] MEDS: LEVOFLOXACIN 500MG 100 ML IV SCH (09:24)
[2018-07-04] MEDS: SODIUM CHLOR 0.9% PF (SALINE LOCK) 10ML VIAL/SYR IV SCH ×2 (09:28→23:05)
[2018-07-04] MEDS ORDERED: HYDROmorphone HCL 2 MG/ML VL IV PRN (09:30)
[2018-07-04 10:38] LABS: Basophils # (auto) 0 uL; Basophils % (auto) 0.4 % (0.0-2.0); Eosinophils # (auto) 0.3 uL; Eosinophils % (auto) 3.3 % (0.0-7.0); Hematocrit 32.1 % (41.0-53.0); Hemoglobin 10.9 g/dL (13.5-17.5); Lymphocytes # (auto) 0.6 uL; Lymphocytes % (auto) 7.1 % (10.0-50.0); Mean Corpuscular Hgb Conc. 34.1 g/dL (32.0-36.0); Mean Corpuscular Volume 88.2 fL (80.0-100.0); Monocytes # (auto) 0.7 uL; Monocytes % (auto) 8.7 % (0.0-12.0); Neutrophils # (auto) 6.8 uL; Neutrophils % (auto) 80.5 % (37.0-80.0); Platelet Count (auto) 346 10^3/uL (140-450); Red Blood Cells 3.64 10^6/uL (4.5-5.90); Red Cell Distribution Width 14.8 % (11.8-14.3); White Blood Cell 8.4 10^3/uL (4.4-10.8)
[2018-07-04 10:50] LABS: Albumin 2.2 g/dL (3.4-5.0); Calcium 7.9 mg/dL (8.5-10.1); Magnesium 2.2 mg/dL (1.6-2.6); Potassium 4.4 mmol/L (3.5-5.1)
[2018-07-04 10:53] LABS: BUN/Creatinine Ratio 22.8; Bilirubin, Total 0.3 mg/dL (0.2-1.0); Phosphorus 3.3 mg/dL (2.5-4.90); Total Protein 5.9 g/dL (6.4-8.2)
[2018-07-04] MEDS: SODIUM FERR GLUC 62.5MG/5ML 125 MG in SODIUM CHL 0.9% 100 ML IV SCH (12:02)
[2018-07-04 13:00] VITALS: BP 141/79
--- NOTE | 2018-07-04 13:50 | NUR ---
AT BEDSIDE DR. TURNER AT BEDSIDE DISCUSSING POC WITH PATIENT. PER MD, OKAY TO DISCONNECT NG TUBE SUCTION FOR PHYSICAL THERAPY. NG TUBE SUCTION DISCONTINUED AT THIS TIME. PHYSICAL THERAPY WALKING WITH PATIENT. NO S/S OF DISTRESS NOTED WILL CONTINUE TO MONITOR.
--- NOTE | 2018-07-04 14:20 | NUR ---
NG SUCTION NG SUCTION HOOKED BACK UP TO LCS PER MD ORDER.
--- NOTE | 2018-07-04 14:45 | NUR ---
NG DRAINAGE 100mLs of dark brown/black drainage noted from NG tube. No drainage noted today until this point. Patient states he is not experiencing any abdominal pain, nausea, vomiting or bloating. He states he just had a bowel movement and feels better. Dr. Palencia made aware. Per MD, monitor for abdominal pain, nausea, vomiting and bloating, monitor H&H and suction to be turned to low intermittent suction. Orders read back and verified. Addendum: 07/04/18 at 1603 by Chica Kent RN Per , Nexium also to be changed to BID. Orders read back and verified.
--- NOTE | 2018-07-04 15:22 | NUR ---
Nutrition Follow-up Notes Wt.: 63.0 kg today. Pt with NGT in place, denies any discomfort except for mild abdominal pain during rounds this morning. 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 Pt remains NPO with TPN @ 77 ml/hr providing 2020 kcal, 90 gms pro, 1660 NPCs and 15% Fat. Pt with adequate PN support d/t high initiation rate delivery of concentrated formula aeb current PN infusion meets 94% to 112% of est caloric needs and 85% to 125% of est protein needs. Discussed importance/benefits of PN support while remains NPO r/t current medical condition and he verbalized understanding. Noted pt's to receive tonight another TPN at same rate and nutrient concentration. Est. Needs based on IBW (72 kg): 4074-2318 kcal (25-30 kcal/kgBW), 72-108 gms pro (1.0-1.5 gms/kgBW d/t CA, severe hypoalbuminemia). Will continue to monitor pertinent labs and reassess nutrient need prn Labs: Gluc 126 H, Cr 0.57 L, Ca 7.9 L, Tpro 5.9 L, AST 14 L, Alb 2.2 L ; Prealb 9.8 L, Trig 85 wnl Skin: Dany scale 19, low risk, pt's medial abdomen incision dry and intact per inside sales director. GI: Pt had 1 BM 07/02/18 per inside sales director. PES: Increased nutrient needs r/t current/chronic medical/nutritional status aeb 84% IBW. BMI, decreased muscle mass, severe hypoalbuminemia, NPO with PN support Altered nutrition related lab values r/t current/chronic medical condition aeb severe hypoalb, hyperglycemia, hypocalcemia Will continue to monitor NPO status, PN tolerance, skin status, pertinent labs and weight trend. F/u in 2 to 3 days. Rec.: 1.) If still NPO, continue PN support that meets at least 75% of est nutrient needs. 2.) Advance gradually to oral diet when medically appropriate. 3.) Refer pt to RD for further nutrition education and weight monitoring upon discharge. 4.) Continue current plan of care.
[2018-07-04 17:00] VITALS: BP 139/87
[2018-07-04 18:23] LABS: Hematocrit 32.1 % (41.0-53.0); Hemoglobin 10.9 g/dL (13.5-17.5)
--- NOTE | 2018-07-04 18:28 | NUR ---
EDITA DRAINAGE: EDITA DRAIN A: 2.5ML SEROUS FLUID. EDITA DRAIN B: 15ML SEROUS FLUID.
--- NOTE | 2018-07-04 18:50 | NUR ---
NG TUBE DRAINAGE: BLACK/BROWN DRAINAGE FROM NG TUBE HAS DECREASED IN OUTPUT TO 25ML. 125ML OF OUTPUT NOW NOTED IN SUCTION CANISTER.. WILL CONTINUE TO MONITOR.
--- NOTE | 2018-07-04 19:24 | NUR ---
Opening Shift Note Assumed care of patient, awake and alert x 4. No S/S of distress/SOB or pain. Bed is in lowest position and locked. Call light within reach. Board updated. Tele box number matches monitor and leads are in correct placement.D5 with 0.45 sodium chloride with 20 mEq of KCL infusing at ordered rate. NG tube secured to right nare and connected to low intermittent suction. Instructed on POC and to callfor assist PRN, will continue to monitor for changes Q1hr and PRN. Addendum: 07/05/18 at 0452 by FATOUMATA LIRA RN Matt catheter secured to leg and bag hung below bladder to non-moving part of bedframe.
[2018-07-04] MEDS ORDERED: TPN PER PHARMACY IV NR ×11 (20:00)
[2018-07-04 22:00] VITALS: BP 143/86
[2018-07-05] MEDS: metroNIDAZOLE 500MG/100ML 100 ML IV SCH ×2 (01:12→09:05)
--- NOTE | 2018-07-05 04:59 | NUR ---
Calling hospitalist because patient has been reporting pain 4-7 out of 10 in his lower back. Patient has chronic lower back pain at home. Repositioning has not helped and hot or cold packs tend to make the pain worse. Patient does not want to take Dilaudid that is ordered because it makes him sick and lethargic. Patient has possible GI bleed with obstruction (his NG tube drainage is black in color) so Toradol was Discontinued and patient is NPO. I asked patient if he wanted me to ask for a less powerful opiate like Morphine and he agreed, requesting a low dose if possible, just something to make the back ache manageable and so he can rest.
--- NOTE | 2018-07-05 05:06 | NUR ---
Spoke to RAMON Odom regarding the patient's pain and she ordered Dilaudid order to be discontinued and replaced with Morphine 1 mg IV Push q 6 hrs PRN pain. Order repeated, verified, and placed.
[2018-07-05] MEDS: MORPHINE SULFATE 4 MG/ML SYR/VIAL IV PRN ×3 (05:32→17:50)
[2018-07-05 05:39] VITALS: BP 130/77
[2018-07-05 06:00] LABS: Hematocrit 32.3 % (41.0-53.0); Hemoglobin 10.9 g/dL (13.5-17.5)
[2018-07-05] MEDS: InsuLIN REG 1unit/0.01ml Soln (100units/ml) SC SCH ×2 (06:00→12:14)
[2018-07-05] MEDS: ACCU-CHEK COMFORT CURVE STRIP VI SCH ×2 (06:10→12:15)
--- NOTE | 2018-07-05 06:12 | NUR ---
Drainage: A EDITA Drain: 5 mls of serosanguineous fluid B EDITA Drain: 10 mls of serous fluid NG Tube: 150 mls of black/green drainage.
[2018-07-05 06:13] LABS: Albumin 2.2 g/dL (3.4-5.0); Magnesium 2.4 mg/dL (1.6-2.6); Potassium 4.6 mmol/L (3.5-5.1)
[2018-07-05 06:16] LABS: BUN/Creatinine Ratio 21.9; Bilirubin, Total 0.4 mg/dL (0.2-1.0); Phosphorus 3.6 mg/dL (2.5-4.90); Total Protein 5.9 g/dL (6.4-8.2)
--- NOTE | 2018-07-05 07:11 | NUR ---
Opening Shift Note Assumed care of patient, awake and alert. No S/S of distress/SOB or pain, NGT in place, secured to LIS. Instructed on POC and to call for assist PRN, will continue to monitor for changes Q1hr and PRN. Bed in low and locked position, rails up x2, no-slip socks on.
[2018-07-05] MEDS ORDERED: GASTROGRAFIN 120 ML SOL ONE (07:14)
[2018-07-05 09:00] VITALS: BP 144/83
[2018-07-05] MEDS ORDERED: EZ-GAS II GRANULES (RADIOLOGY USE) PO ONE (09:43)
--- NOTE | 2018-07-05 09:55 | NUR ---
Petersen catheter dc'd Order to discontinue petersen catheter. Petersen dc'd with clean technique following deflation of balloon. Patient tolerated well with no complaints of pain. Continue care. Output 1300ml.
--- NOTE | 2018-07-05 09:58 | NUR ---
PATIENT OFF UNIT FOR PROCEDURE GASTROGRAFIN UPPER GI SERIES
--- NOTE | 2018-07-05 10:30 | NUR ---
PATIENT BACK ON UNIT REATTACHED TO LIS PER RADIOLOGY, COMPLETED SERIES.
[2018-07-05] MEDS: ESOMEPRAZOLE 40 MG/5ml VIAL INJ IV SCH ×2 (11:02→22:06)
[2018-07-05] MEDS: LEVOFLOXACIN 500MG 100 ML IV SCH (11:02)
[2018-07-05] MEDS: SODIUM CHLOR 0.9% PF (SALINE LOCK) 10ML VIAL/SYR IV SCH ×2 (11:02→22:07)
[2018-07-05] MEDS: D5W/SOD CHL 0.45%/KCL 20MEQ 1,000 ML IV SCH (11:08)
[2018-07-05] MEDS: SODIUM FERR GLUC 62.5MG/5ML 125 MG in SODIUM CHL 0.9% 100 ML IV SCH (12:12)
--- NOTE | 2018-07-05 12:21 | NUR ---
NGT removal and diet added NGT removed per MD/SEMICONDU[employer] PACKAGES PLATEMAKER order following explanation and instruction to patient. Patient verbalized understanding prior to removal. Patient tolerated well. Advanced diet to clear liquid, per MD orders tapering TPN at this time.
[2018-07-05 13:00] VITALS: BP 121/67
--- NOTE | 2018-07-05 15:10 | NUR ---
PATIENT AMBULATING WITH PT
[2018-07-05 16:58] VITALS: BP 122/94
--- NOTE | 2018-07-05 17:30 | NUR ---
PATIENT MOVED ROOMS WITH ALL PERSONAL BELONGINGS FROM 274B TO 284B
--- NOTE | 2018-07-05 18:52 | NUR ---
DRAIN OUTPUT A: SCANT SEROSANGUINEOUS- NOT MEASURABLE B: 5ML SEROUS NML GREENISH BILE COLORED PRIOR TO DC AT 1221 POST GASTROGRAFIN STUDY ALL OUTPUT CHARTED IN I&O
--- NOTE | 2018-07-05 18:53 | NUR ---
DC TELE RETURNED TO DIANNA
--- NOTE | 2018-07-05 19:25 | NUR ---
Opening Shift Note Assumed care of patient, awake and alert x 4. No S/S of distress/SOB or pain. Bed is in lowest position and locked. Call light within reach. Board updated. Instructed on POC and to call for assist PRN, will continue to monitor for changes Q1hr and PRN.
[2018-07-05] MEDS ORDERED: TPN PER PHARMACY IV NR ×10 (20:00)
--- NOTE | 2018-07-05 20:04 | NUR ---
Unstageable, non-blanchable wound found to patient's sacrum not previously found during other assessments. Will take picture of wound. Z-Guard and heart shaped optifoam placed over sacrum.
[2018-07-05 22:00] VITALS: BP 142/86
[2018-07-05] MEDS: METOPROLOL TARTRATE 25 MG TAB PO SCH (22:07)
--- NOTE | 2018-07-06 00:01 | NUR ---
Patient is now NPO pending Port-A-Cath insertion procedure in the AM. Patient aware of what this means and has agreed not to eat or drink anything starting now.
[2018-07-06 05:00] VITALS: BP 144/85
--- NOTE | 2018-07-06 07:01 | NUR ---
Drainage: A EDITA Drain: 0mls B EDITA Drain: 5 mls serous fluid.
[2018-07-06 07:07] LABS: Albumin 2.8 g/dL (3.4-5.0); Calcium 8.6 mg/dL (8.5-10.1); Magnesium 2.3 mg/dL (1.6-2.6); Potassium 4.1 mmol/L (3.5-5.1)
[2018-07-06 07:08] LABS: INR 1.14 (0.9-1.15); Partial Thromboplastin Time 30.9 sec (23.64-32.05)
[2018-07-06 07:10] LABS: BUN/Creatinine Ratio 14.8
[2018-07-06 07:12] LABS: Bilirubin, Total 0.5 mg/dL (0.2-1.0); Phosphorus 4.1 mg/dL (2.5-4.90); Total Protein 7.2 g/dL (6.4-8.2)
[2018-07-06 08:00] VITALS: BP 99/63
[2018-07-06 08:54] VITALS: BP 120/79
[2018-07-06] MEDS: SODIUM CHLOR 0.9% PF (SALINE LOCK) 10ML VIAL/SYR IV SCH ×2 (10:00→22:09)
[2018-07-06] MEDS: ESOMEPRAZOLE 40 MG/5ml VIAL INJ IV SCH ×2 (10:00→22:09)
[2018-07-06] MEDS: METOPROLOL TARTRATE 25 MG TAB PO SCH ×2 (10:00→22:10)
--- NOTE | 2018-07-06 10:05 | NUR ---
assessment Patient is a 52 year old male who is alert and oriented. Patients cognitive abilities are intact. Prior to admission patient lived home alone and functioned independently. Patient informed me he is able to care for his own ADLs. Per patient he will return home to his prior living arrangements post discharge and family will transport him home. Patient informed me his family will help him on discharge if needed. Patient has no insurance. Per Matt Tong patient is over income. Matt is working with Dr Palencia to get patient qualified for [facility] with his new diagnosis. I have informed patient he can follow up with [facility], Dr. Beauchamp, and [facility] urgent care for follow up visits. I have provided patient with a prescription card from community assistance program. Patient verbalized understanding and agreed to discharge plan home. Addendum: 07/06/18 at 1020 by Sonal ANNE Amended: Links added.
[2018-07-06] MEDS ORDERED: ceFAZolin 1GM VL ONE (10:17)
[2018-07-06] MEDS ORDERED: LIDOCAINE 1% HCL (LOCAL ANESTH.) INJ 20ML MDV ONE (10:17)
[2018-07-06] MEDS ORDERED: HEPARIN SODIUM (PORCINE) 5000 UNITS/ML 1ML VIAL ONE (10:18)
[2018-07-06] MEDS ORDERED: BUPIVACAINE W/ EPINEPH 0.25% INJ 50ML MDV ONE (10:19)
[2018-07-06] MEDS ORDERED: HEPARIN IN NS 1000Units/500mL 0 ML ONE (10:19)
[2018-07-06] MEDS ORDERED: HEPARIN 1,000 UNITS/ml 1ML VIAL ONE (10:22)
[2018-07-06] MEDS ORDERED: ceFAZolin 1GM/50ML 50 ML IV ONE (10:48)
[2018-07-06] MEDS ORDERED: LIDOCAINE 1% (LOCAL ANESTH.) PF 5ml SDV ONE (11:03)
[2018-07-06] MEDS ORDERED: MIDAZOLAM HCL 1MG/1ML-2 ML VIAL ONE ×2 (11:15→11:43)
[2018-07-06] MEDS ORDERED: GLYCOPYRROLATE 0.2 MG/ML 1ML VIAL ONE (11:16)
[2018-07-06] MEDS ORDERED: METOCLOPRAMIDE HCL 5MG/ml INJ 2ml VIAL ONE (11:16)
[2018-07-06] MEDS ORDERED: diphenhdrAMINE HCL 50 MG/1 ML VL ONE (11:16)
[2018-07-06] MEDS ORDERED: PROPOFOL 10 MG/ML 20 ML IV ONE (11:22)
[2018-07-06] MEDS ORDERED: fentaNYL CITRATE 100 MCG/2 ML VL ONE (11:44)
[2018-07-06] MEDS ORDERED: HYDROmorphone HCL 2 MG/ML VL IV PRN ×2 (11:45)
[2018-07-06] MEDS ORDERED: ONDANSETRON HCL 4 MG/2 ML VIAL IV ONE (11:45)
[2018-07-06] MEDS ORDERED: NALOXONE HCL 0.4 MG/ML VIAL IV PRN (11:45)
[2018-07-06] MEDS ORDERED: SODIUM CHLORIDE LOCK 10 ML ONE (11:57)
[2018-07-06] MEDS ORDERED: PHENYLEPHRINE HCL 10 MG/ML VL ONE (11:57)
[2018-07-06] MEDS: SODIUM FERR GLUC 62.5MG/5ML 125 MG in SODIUM CHL 0.9% 100 ML IV SCH (12:00)
--- NOTE | 2018-07-06 12:02 | NUR ---
PT Patient was brought down by ELDER Hansen for a procedure. Addendum: 07/06/18 at 1203 by JERAMY ZHANG PTT Amended: Links added.
--- NOTE | 2018-07-06 12:43 | NUR ---
Nutrition Consult and Follow-up Notes Wt.: 62.0 kg today. Pt's NPO, off the floor for a procedure when rounded this morning. Pt's off from TPN (07/04/18), noted to start today on Full Liquid diet. Est. Needs based on IBW (72 kg): 9591-3013 kcal (25-30 kcal/kgBW), 72-108 gms pro (1.0-1.5 gms/kgBW d/t CA, severe hypoalbuminemia). Will continue to monitor pertinent labs and reassess nutrient need prn Labs: Pertinent labs wnl today except for Alb 2.8 L ; Prealb 11.6 L, Trig 85 wnl Skin: Dany scale 18, low risk, pt's medial sacrum unstageable pressure ulcer, medial abdomen incision dry and intact per biological plant operator. Pls refer to Wound consult notes for further details re: tx plans. GI: Pt had 1 BM 07/05/18 per biological plant operator. PES: Partially resolved: Increased nutrient needs r/t current/chronic medical/nutritional status aeb 84% IBW. BMI, decreased muscle mass, severe hypoalbuminemia, NPO with PN support Altered nutrition related lab values r/t current/chronic medical condition aeb severe hypoalb, hyperglycemia, hypocalcemia Will continue to monitor PO intake, skin status, pertinent labs and weight trend. F/u in 3 to 5 days. Rec.: 1.) Consider Ensure Enlive 1 carton TID. 2.) Advance oral diet when medically appropriate. 3.) If Albumin level continues trending down, consider Prostat 1 pkt BID. 4.) Consider daily MVI with minerals and Asc acid 500 mgs BID. 5.) Refer pt to RD for further nutrition education and weight monitoring upon discharge. 6.) Continue current plan of care. Thank you for this consult.
--- NOTE | 2018-07-06 13:30 | NUR ---
WOUND CARE NOTE: IN TO SEE PATIENT PER WOUND CARE CONSULT REQUEST. PATIENT NOTED TO HAVE WOUNDS TO INTRAGLUTEAL FOLD SACRUM. WOUND PHOTO TAKEN FOR REFERENCE BY BEDSIDE NURSE FOR REFERENCE, WOUND CONSULT ORDERED. PATIENT HAS LOW GERALD SCORE OF 13. HE IS WEAK, UNABLE TO REPOSITION SELF AT THIS TIME. HE IS NOW MAX ASSIST FOR HIS ADL'S. ORDERED SPECIALTY AIR MATTRESS AT THIS TIME. PATIENT TO BE PLACED, PENDING DELIVERY BY DESMOND ROMERO. PATIENT IS NOTED TO HAVE 2 SUPERFICIAL ABRASIONS TO THE MEDIAL SACRUM AT INTRAGLUTEAL FOLD. WOUNDS APPEAR TO HAVE OCCURRED FROM FRICTION. NO OPEN OR DRAINING AREAS NOTED. APPLIED ZGUARD AND COVERED WITH OPTIFOAM GENTLE SACRAL DRESSING. NEW WOUND PHOTO TAKEN AT THIS TIME FOR REFERENCE. RECOMMEND: FREQUENT TURN SCHEDULE Q 2 HOURS, PRN CONDITION PERMITS, WITH PRESSURE REDISTRIBUTION USING PILLOWS/WEDGES, BID/PRN APPLICATION WITH ZGUARD, OPTIFOAM GENTLE SACRAL DRESSING, SPECIALTY AIR BED, DIETARY CONSULT, SKIN/WOUND CARE PLAN, CONTINUED MONITORING BY WOUND CARE TEAM. Addendum: 07/06/18 at 1907 by Kacey Phillips RN Amended: Links added.
[2018-07-06 16:14] VITALS: BP 140/86
[2018-07-06] MEDS: Pro-Stat SF 30ml Vanilla PO SCH (18:00)
[2018-07-06] MEDS: Ensure Enlive Strawberry 8oz Bottle PO SCH (18:00)
--- NOTE | 2018-07-06 19:20 | NUR ---
Opening Shift Note Received report from layo Hansen RN. Assumed care of patient, awake and alert. No S/S of distress/SOB or pain. Instructed on POC and to call for assist PRN, will continue to monitor for changes Q1hr and PRN. Bed placed in lowest position, call light within reach. EDITA drains are empty.
--- NOTE | 2018-07-06 19:38 | NUR ---
ENDORSED CARE TO [facility] NURSE. PATIENT A/O X4, NO PAIN OR DISTRESS AT THIS TIME. SURGICAL DRESSINGS ARE CLEAN, DRY AND INTACT. EDITA DRAINSX2 ARE PATENT AND INTACT, DRAINING MINIMAL SEROSANGUINEOUS FLUID. CALL LIGHT ON HAND, INSTRUCTED TO CALL FOR ASSISTANCE PRN.
[2018-07-06 21:59] VITALS: BP_SYST 120; BP_SYST 136; BP_DIAS 73; BP_DIAS 75
[2018-07-06] MEDS: ASCORBIC ACID 500 MG TAB PO SCH (22:09)
[2018-07-07 04:54] VITALS: BP 120/75
[2018-07-07 09:35] VITALS: BP 117/69
[2018-07-07] MEDS: ASCORBIC ACID 500 MG TAB PO SCH (09:56)
[2018-07-07] MEDS: METOPROLOL TARTRATE 25 MG TAB PO SCH (09:57)
[2018-07-07] MEDS: SODIUM CHLOR 0.9% PF (SALINE LOCK) 10ML VIAL/SYR IV SCH (09:57)
[2018-07-07] MEDS: Pro-Stat SF 30ml Vanilla PO SCH (09:58)
[2018-07-07] MEDS: ESOMEPRAZOLE 40 MG/5ml VIAL INJ IV SCH (09:58)
[2018-07-07] MEDS: Ensure Enlive Strawberry 8oz Bottle PO SCH (09:58)
[2018-07-07] MEDS ORDERED: MULTIPLE VITAMINS W/ MINERALS TAB PO SCH (10:00)
[2018-07-07] MEDS ORDERED: MET25T PO (10:47)
[2018-07-07] MEDS ORDERED: FER325T PO (10:47)
[2018-07-07] MEDS ORDERED: ESOM40CA39 PO (10:47)
[2018-07-07] MEDS: SODIUM FERR GLUC 62.5MG/5ML 125 MG in SODIUM CHL 0.9% 100 ML IV SCH (12:00)
[2018-07-07 12:20] VITALS: BP 117/69
[2018-07-07 13:03] VITALS: BP 125/77
--- NOTE | 2018-07-07 15:15 | NUR ---
DISCHARGE PATIENT IS D/C'D. PICC LINE REMOVED WITH CATHETER INTACT, PATIENT TOLERATED WELL. PATIENT AMBULATED WITH BROTHER TO VEHICLE WITH STEADY GAIT. NO S/S OF DISTRESS NOTED, DENIES PAIN
== END 2018-07-07 15:15 | disposition home or self-care (01) | DRG 326 ==
LOC: EDBD 11:13 → ER 11:15 → OR 1 13:22 → DOU IN ICU 17:54 → TELE-WESTW 07-01 15:50 → WEST WING 07-05 16:24
PROVIDERS: ADMIT Surgery; ATTEND Internal Medicine
PROC: 0DB48ZX Excision of Esophagogastric Junction, Via Natural or Artificial Opening Endoscopic, Diagnostic (ICD-10-PCS; 2018-06-27)
PROC: 0DB Gastrointestinal System, Excision (ICD-10-PCS; principal; 2018-06-27 14:26)
PROC: 0DQ40ZZ Repair Esophagogastric Junction, Open Approach (ICD-10-PCS; 2018-06-27 14:26)
PROC: 0JH60WZ Insertion of Totally Implantable Vascular Access Device into Chest Subcutaneous Tissue and Fascia, Open Approach (ICD-10-PCS; 2018-07-06)
PROC: 02HV33Z Insertion of Infusion Device into Superior Vena Cava, Percutaneous Approach (ICD-10-PCS; 2018-07-06)
DX: C16.0 Malignant neoplasm of cardia (principal); K25.5 Chronic or unspecified gastric ulcer with perforation; K65.0 Generalized (acute) peritonitis; E44.0 Moderate protein-calorie malnutrition; Z68.1 Body mass index [BMI] 19.9 or less, adult; D64.9 Anemia, unspecified; E87.6 Hypokalemia; F17.210 Nicotine dependence, cigarettes, uncomplicated; I10 Essential (primary) hypertension; I73.9 Peripheral vascular disease, unspecified; J43.9 Emphysema, unspecified; K21.9 Gastro-esophageal reflux disease without esophagitis; K59.00 Constipation, unspecified; M19.90 Unspecified osteoarthritis, unspecified site; G89.29 Other chronic pain; G40.909 Epilepsy, unspecified, not intractable, without status epilepticus
CPT/HCPCS: 36415; 36569; 51702; 71045; 71260; 74018; 74177; 74247; 80053; 82040; 82378; 82728; 82962; 83540; 83550; 83690; 83735; 83880; 84100; 84478; 84484; 85014; 85018; 85025; 85610; 85730; 86301; 86850; 86900; 86901; 87081; 93005; 94761; 96374; 96375; 97163; 99291; C1788; C9113; G0378; J0330; J0690; J1815; J1885; J1956; J2001; J2250; J2405; J2543; J2704; J3480; J3490; J7131

== ENCOUNTER → 2019-06-20 | Emergency (ER) | payer MEDICAID ==
[~2019-06-20] VITALS: Ht 175.3 cm; Wt 77.1 kg
[~2019-06-20] MED LIST: ESOM40CA39 PO; FER325T PO; MET25T PO
[2019-06-20 17:41] LABS: Basophils # (auto) 0 10 ^3/uL (0-0.2); Basophils % (auto) 0.8 % (0.0-2.0); Eosinophils # (auto) 0.1 10 ^3/uL (0-0.8); Eosinophils % (auto) 1.9 % (0.0-7.0); Hematocrit 33.1 % (41.0-53.0); Hemoglobin 10.8 g/dL (13.5-17.5); Lymphocytes # (auto) 0.9 10 ^3/uL (0.4-5.4); Lymphocytes % (auto) 15.1 % (10.0-50.0); Mean Corpuscular Hemoglobin 27.8 pg (28.0-32.0); Mean Corpuscular Hgb Conc. 32.6 g/dL (32.0-36.0); Mean Corpuscular Volume 85.4 fL (80.0-100.0); Monocytes # (auto) 0.4 10 ^3/uL (0-1.3); Neutrophils # (auto) 4.4 10 ^3/uL (1.6-8.6); Neutrophils % (auto) 75.2 % (37.0-80.0); Platelet Count (auto) 306 10^3/uL (140-450); Red Blood Cells 3.88 10^6/uL (4.5-5.90); Red Cell Distribution Width 18.9 % (11.8-14.3); White Blood Cell 5.9 10^3/uL (4.4-10.8)
[2019-06-20 17:55] LABS: Partial Thromboplastin Time 27.7 sec (23.64-32.05)
[2019-06-20 18:00] LABS: Albumin 3.1 g/dL (3.4-5.0); Calcium 8.5 mg/dL (8.5-10.1); Potassium 4.1 mmol/L (3.5-5.1)
[2019-06-20 18:04] LABS: BUN/Creatinine Ratio 14.8; Bilirubin, Total 0.3 mg/dL (0.2-1.0); Total Protein 7.9 g/dL (6.4-8.2)
[2019-06-20 18:31] LABS: Magnesium 2.1 mg/dL (1.6-2.6)
[2019-06-20 20:03] LABS: Urine Bacteria NONE SEEN /hpf (None Seen); Urine Blood Negative /uL (Negative); Urine Specific Gravity 1.001 (1.001-1.035); Urine WBC <1 /hpf (0 - 3)
[2019-06-21 04:00] VITALS: BP 143/81
== END | disposition home or self-care (01) ==
LOC: EDUNIT# 16:55 → ER 17:09 → EDBD 17:09
DX: R55 Syncope and collapse (principal); C78.89 Secondary malignant neoplasm of other digestive organs; R56.9 Unspecified convulsions; D50.9 Iron deficiency anemia, unspecified; E87.1 Hypo-osmolality and hyponatremia
CPT/HCPCS: 36415; 70450; 71045; 80053; 81001; 83735; 84443; 84484; 85025; 85610; 85730; 93005; 99291

== ENCOUNTER 2019-08-02 17:13 | Inpatient (IN) | payer MEDICAID ==
[~2019-08-02] VITALS: Ht 175.3 cm; Wt 54.3 kg
[2019-08-02] MEDS ORDERED: SODIUM CHLORIDE 0.9% 1,000 ML IV ONE ×2 (17:16)
[2019-08-02] MEDS ORDERED: LORazepam 2MG/ML-1ML VIAL IV ONE ×2 (17:30)
[2019-08-02] MEDS ORDERED: HALOPERIDOL LACTATE 5 MG/ML INJ VIAL IM ONE ×2 (17:30)
[2019-08-02] MEDS ORDERED: LORazepam 2MG/ML-1ML VIAL ONE (17:32)
[2019-08-02] MEDS ORDERED: HALOPERIDOL LACTATE 5 MG/ML INJ VIAL ONE (17:32)
[2019-08-02 18:13] LABS: Basophils # (auto) 0 10 ^3/uL (0-0.2); Basophils % (auto) 0.3 % (0.0-2.0); Eosinophils # (auto) 0 10 ^3/uL (0-0.8); Hematocrit 35.5 % (41.0-53.0); Hemoglobin 11.5 g/dL (13.5-17.5); Lymphocytes # (auto) 0.4 10 ^3/uL (0.4-5.4); Lymphocytes % (auto) 3.4 % (10.0-50.0); Mean Corpuscular Hemoglobin 27.6 pg (28.0-32.0); Mean Corpuscular Hgb Conc. 32.5 g/dL (32.0-36.0); Mean Corpuscular Volume 84.9 fL (80.0-100.0); Monocytes # (auto) 0.6 10 ^3/uL (0-1.3); Monocytes % (auto) 4.5 % (0.0-12.0); Neutrophils # (auto) 11.4 10 ^3/uL (1.6-8.6); Neutrophils % (auto) 91.8 % (37.0-80.0); Platelet Count (auto) 360 10^3/uL (140-450); Red Blood Cells 4.18 10^6/uL (4.5-5.90); Red Cell Distribution Width 17.5 % (11.8-14.3); White Blood Cell 12.4 10^3/uL (4.4-10.8)
[2019-08-02 18:29] LABS: INR 1.01 (0.9-1.15); Partial Thromboplastin Time 30.1 sec (23.64-32.05)
[2019-08-02 18:35] LABS: Albumin 3.2 g/dL (3.4-5.0); Calcium 8.8 mg/dL (8.5-10.1); Potassium 3.4 mmol/L (3.5-5.1)
[2019-08-02 18:42] LABS: BUN/Creatinine Ratio 11.8; Bilirubin, Total 0.3 mg/dL (0.2-1.0); Total Protein 7.6 g/dL (6.4-8.2)
[2019-08-02 18:52] LABS: Urine Amorphous Crystal FEW /hpf (None Seen); Urine Bacteria NONE SEEN /hpf (None Seen); Urine Blood 1+ /uL (Negative); Urine Hyaline Cast FEW /lpf (0 - 2); Urine Mucus FEW (None Seen); Urine Specific Gravity 1.011 (1.001-1.035); Urine WBC 1 /hpf (0 - 3)
[2019-08-02 19:04] LABS: Alcohol, Urine < 3.0 mg/dL (0-10); Amphetamine Screen, Urine NEGATIVE (NEGATIVE); Barbiturate Scree,Urine NEGATIVE (NEGATIVE); Benzodiazephine Screen, Urine NEGATIVE (NEGATIVE); Cannabinoid Screen, Urine NEGATIVE (NEGATIVE); Cocaine Screen, Urine NEGATIVE (NEGATIVE); Opiate Scree,Urine NEGATIVE (NEGATIVE); Phencyclidine Screen, Urine NEGATIVE (NEGATIVE)
[2019-08-02] MEDS ORDERED: TEMAZEPAM 15 MG CAP PO PRN (20:45)
[2019-08-02] MEDS ORDERED: ONDANSETRON HCL 4 MG/2 ML VIAL IV PRN (20:45)
[2019-08-02] MEDS ORDERED: ACETAMINOPHEN 325 MG TAB PO PRN (20:45)
[2019-08-02] MEDS: METOPROLOL TARTRATE 25 MG TAB PO SCH (22:00)
[2019-08-02] MEDS: FAMOTIDINE 20 MG TAB PO SCH (22:00)
[2019-08-02 22:55] VITALS: BP 125/68
[2019-08-02] MEDS: SODIUM CHLORIDE 0.9% 1,000 ML IV SCH (23:00)
[2019-08-03] VITALS (7 sets, daily range): BP systolic 114–139; BP diastolic 60–87
[2019-08-03 07:13] LABS: Basophils # (auto) 0 10 ^3/uL (0-0.2); Basophils % (auto) 0.4 % (0.0-2.0); Eosinophils # (auto) 0 10 ^3/uL (0-0.8); Eosinophils % (auto) 0.1 % (0.0-7.0); Hemoglobin 11.1 g/dL (13.5-17.5); Lymphocytes # (auto) 0.6 10 ^3/uL (0.4-5.4); Lymphocytes % (auto) 5.8 % (10.0-50.0); Mean Corpuscular Hemoglobin 28.3 pg (28.0-32.0); Mean Corpuscular Hgb Conc. 33.5 g/dL (32.0-36.0); Mean Corpuscular Volume 84.5 fL (80.0-100.0); Monocytes % (auto) 9.7 % (0.0-12.0); Neutrophils # (auto) 8.5 10 ^3/uL (1.6-8.6); Platelet Count (auto) 322 10^3/uL (140-450); Red Blood Cells 3.91 10^6/uL (4.5-5.90); Red Cell Distribution Width 17.4 % (11.8-14.3); White Blood Cell 10.1 10^3/uL (4.4-10.8)
[2019-08-03 07:40] LABS: Calcium 8.4 mg/dL (8.5-10.1)
[2019-08-03] MEDS ORDERED: ASPirin 81 mg TAB PO SCH (10:00)
[2019-08-03] MEDS: SODIUM CHLORIDE 0.9% 1,000 ML IV SCH ×2 (10:34→14:15)
[2019-08-03] MEDS: METOPROLOL TARTRATE 25 MG TAB PO SCH ×2 (10:34→22:11)
[2019-08-03] MEDS: FAMOTIDINE 20 MG TAB PO SCH ×2 (10:34→22:12)
[2019-08-03] MEDS ORDERED: GADOTERIDOL 279.3mg/mL 20ml Vial IV ONE (12:23)
[2019-08-03] MEDS ORDERED: ESOM20CA PO (13:54)
[2019-08-03] MEDS ORDERED: POTASSIUM CHL 20 Meq TABLET PO ONE (14:15)
[2019-08-03] MEDS: FERROUS SULFATE 325 MG TAB PO SCH (17:45)
[2019-08-03] MEDS ORDERED: LORazepam 2MG/ML-1ML VIAL IV PRN ×2 (22:15)
[2019-08-03] MEDS: ASPirin 325 MG TAB PO PRN (23:09)
[2019-08-04 05:30] VITALS: BP 141/74
[2019-08-04] MEDS: SODIUM CHLORIDE 0.9% 1,000 ML IV SCH (06:55)
[2019-08-04 07:20] LABS: Calcium 8.4 mg/dL (8.5-10.1); Magnesium 2.1 mg/dL (1.6-2.6); Potassium 3.2 mmol/L (3.5-5.1)
[2019-08-04 07:22] LABS: BUN/Creatinine Ratio 13.3
[2019-08-04] MEDS: FERROUS SULFATE 325 MG TAB PO SCH ×2 (08:25→18:13)
[2019-08-04 09:00] VITALS: BP 163/76
[2019-08-04] MEDS: FAMOTIDINE 20 MG TAB PO SCH ×2 (09:50→21:58)
[2019-08-04] MEDS: levETIRAcetam 500 MG TAB PO SCH ×2 (09:50→21:58)
[2019-08-04] MEDS: ASPirin 81 mg TAB PO SCH (09:50)
[2019-08-04] MEDS: METOPROLOL TARTRATE 25 MG TAB PO SCH ×2 (09:51→22:00)
[2019-08-04 12:34] VITALS: BP 131/68
[2019-08-04] MEDS ORDERED: POTASSIUM EFFERVESENT TAB 25 MEQ PO ONE (15:00)
[2019-08-04 16:47] VITALS: BP 141/81
[2019-08-04 20:00] VITALS: BP 137/72
[2019-08-04] MEDS: ASPirin 325 MG TAB PO PRN (21:59)
[2019-08-04 22:00] VITALS: BP 137/72
[2019-08-05] MEDS: SODIUM CHLORIDE 0.9% 1,000 ML IV SCH (01:18)
[2019-08-05 05:00] VITALS: BP 158/85
[2019-08-05 06:21] LABS: Basophils # (auto) 0.1 10 ^3/uL (0-0.2); Basophils % (auto) 1.1 % (0.0-2.0); Eosinophils # (auto) 0 10 ^3/uL (0-0.8); Eosinophils % (auto) 0.6 % (0.0-7.0); Hemoglobin 11.9 g/dL (13.5-17.5); Lymphocytes # (auto) 0.8 10 ^3/uL (0.4-5.4); Lymphocytes % (auto) 10.4 % (10.0-50.0); Mean Corpuscular Hemoglobin 28.3 pg (28.0-32.0); Mean Corpuscular Volume 85.6 fL (80.0-100.0); Monocytes # (auto) 0.8 10 ^3/uL (0-1.3); Monocytes % (auto) 10.7 % (0.0-12.0); Neutrophils % (auto) 77.2 % (37.0-80.0); Nucleated Red Blood Cells % 0.1 %; Platelet Count (auto) 288 10^3/uL (140-450); Red Blood Cells 4.21 10^6/uL (4.5-5.90); Red Cell Distribution Width 17.2 % (11.8-14.3); White Blood Cell 7.8 10^3/uL (4.4-10.8)
[2019-08-05 07:04] LABS: Potassium 3.3 mmol/L (3.5-5.1)
[2019-08-05 07:12] LABS: BUN/Creatinine Ratio 22.2; Calcium 8.7 mg/dL (8.5-10.1)
[2019-08-05] MEDS: FERROUS SULFATE 325 MG TAB PO SCH (07:54)
[2019-08-05 09:00] VITALS: BP 147/81
[2019-08-05] MEDS: METOPROLOL TARTRATE 25 MG TAB PO SCH (10:00)
[2019-08-05] MEDS: FAMOTIDINE 20 MG TAB PO SCH (10:20)
[2019-08-05] MEDS: ASPirin 81 mg TAB PO SCH (10:21)
[2019-08-05] MEDS: levETIRAcetam 500 MG TAB PO SCH (10:21)
[2019-08-05] MEDS ORDERED: POTASSIUM EFFERVESENT TAB 25 MEQ PO ONE (11:15)
[2019-08-05] MEDS ORDERED: DOCUSATE SOD 100 MG CAP PO PRN (11:45)
[2019-08-05 13:25] VITALS: BP 148/77
== END 2019-08-05 15:00 | disposition home or self-care (01) | DRG 57 ==
LOC: EDBD 17:13 → ER 17:13 → OVERFLOW 17:14 → WEST WING 22:45
PROVIDERS: ADMIT Nurse Practitioner; ATTEND Internal Medicine
PROC: 0HQ1XZZ Repair Face Skin, External Approach (ICD-10-PCS; principal; 2019-08-02)
DX: S06.0X9A Concussion with loss of consciousness of unspecified duration, initial encounter (principal); G93.41 Metabolic encephalopathy; J90 Pleural effusion, not elsewhere classified; C78.7 Secondary malignant neoplasm of liver and intrahepatic bile duct; E44.0 Moderate protein-calorie malnutrition; R65.10 Systemic inflammatory response syndrome (SIRS) of non-infectious origin without acute organ dysfunction; E87.1 Hypo-osmolality and hyponatremia; G40.209 Localization-related (focal) (partial) symptomatic epilepsy and epileptic syndromes with complex partial seizures, not intractable, without status epilepticus; C34.90 Malignant neoplasm of unspecified part of unspecified bronchus or lung; J98.11 Atelectasis; S00.12XA Contusion of left eyelid and periocular area, initial encounter; J43.8 Other emphysema; E87.6 Hypokalemia; J34.2 Deviated nasal septum; D63.8 Anemia in other chronic diseases classified elsewhere; W18.39XA Other fall on same level, initial encounter; I10 Essential (primary) hypertension; F17.210 Nicotine dependence, cigarettes, uncomplicated; Y93.89 Activity, other specified; Y92.89 Other specified places as the place of occurrence of the external cause; Y99.8 Other external cause status; Z82.49 Family history of ischemic heart disease and other diseases of the circulatory system; Z68.1 Body mass index [BMI] 19.9 or less, adult; Z85.01 Personal history of malignant neoplasm of esophagus; Z91.19 Patient's noncompliance with other medical treatment and regimen; Z79.899 Other long term (current) drug therapy
CPT/HCPCS: 36415; 70450; 70486; 71250; 72192; 80048; 80053; 80061; 80307; 81001; 82140; 82962; 83605; 83735; 83880; 84295; 84443; 84484; 85025; 85610; 85730; 93005; 93306; 93886; 95819; 96361; 96372; 96374; 99291; G0378

== ENCOUNTER 2019-08-07 18:09 | Emergency (ER) | payer MEDICAID ==
[~2019-08-07] VITALS: Ht 185.4 cm; Wt 68.0 kg
[~2019-08-07 18:09] MED LIST changes: +ESOM20CA PO; -ESOM40CA39 PO
[2019-08-07 19:40] LABS: Basophils # (auto) 0.1 10 ^3/uL (0-0.2); Basophils % (auto) 0.5 % (0.0-2.0); Eosinophils # (auto) 0 10 ^3/uL (0-0.8); Eosinophils % (auto) 0.1 % (0.0-7.0); Hematocrit 37.5 % (41.0-53.0); Hemoglobin 12.1 g/dL (13.5-17.5); Lymphocytes # (auto) 0.5 10 ^3/uL (0.4-5.4); Lymphocytes % (auto) 3.8 % (10.0-50.0); Mean Corpuscular Hemoglobin 27.7 pg (28.0-32.0); Mean Corpuscular Hgb Conc. 32.4 g/dL (32.0-36.0); Mean Corpuscular Volume 85.7 fL (80.0-100.0); Monocytes # (auto) 0.7 10 ^3/uL (0-1.3); Monocytes % (auto) 5.9 % (0.0-12.0); Neutrophils # (auto) 10.7 10 ^3/uL (1.6-8.6); Neutrophils % (auto) 89.7 % (37.0-80.0); Platelet Count (auto) 307 10^3/uL (140-450); Red Blood Cells 4.37 10^6/uL (4.5-5.90); Red Cell Distribution Width 17.2 % (11.8-14.3); White Blood Cell 11.9 10^3/uL (4.4-10.8)
[2019-08-07 19:57] LABS: Blood Alcohol < 3.0 mg/dL (0-5); Magnesium 1.9 mg/dL (1.6-2.6)
[2019-08-07 19:58] LABS: Alanine Aminotransferase 17 U/L (16-61); Anion Gap 9 (5-15); Aspartate Aminotransferase 17 U/L (15-37); BUN/Creatinine Ratio 18.8; Blood Urea Nitrogen 9 mg/dL (7-18); Calcium 8.4 mg/dL (8.5-10.1); Carbon Dioxide 26 mmol/L (21-32); Chloride 90 mmol/L (98-107); GFR African American 234 mL/min; GFR Non-African American 194 mL/min; Glucose 127 mg/dL (74-106); Potassium 3.5 mmol/L (3.5-5.1); Sodium 125 mmol/L (136-145)
[2019-08-07] MEDS ORDERED: MORPHINE SULF INJ 2 MG/ML SYRINGE 1ML IV PRN (20:00)
[2019-08-07] MEDS ORDERED: NITROGLYCERIN 0.4 MG SL TAB SL PRN (20:00)
[2019-08-07 20:03] LABS: Alkaline Phosphatase 116 U/L (45-117); Bilirubin, Total 0.5 mg/dL (0.2-1.0); Total Protein 7.5 g/dL (6.4-8.2)
[2019-08-08 05:40] VITALS: BP 164/92
[2019-08-08] MEDS ORDERED: ACETAMINOPHEN 500 MG TAB PO ONE ×2 (05:45→06:00)
== END 2019-08-07 21:54 | disposition home or self-care (01) ==
LOC: EDBD 18:09 → ER 18:09 → EDUNIT# 18:09 → TELE 18:10 → UNDOADMIN 18:10 → ER 21:54
DX: G93.41 Metabolic encephalopathy (principal); E87.1 Hypo-osmolality and hyponatremia; R41.82 Altered mental status, unspecified; I10 Essential (primary) hypertension; F17.210 Nicotine dependence, cigarettes, uncomplicated
CPT/HCPCS: 36415; 70450; 70486; 71045; 80053; 80320; 83735; 84484; 85025